=== PATIENT | female | born 1985 | race African-American/Black ===

== ENCOUNTER 2016-07-17 11:45 | Outpatient (CLI) | payer OTHER ==
[2016-07-17 13:11] LABS: #Eosinphils 0.2 thou/uL (0.0-0.7); #Lymphocytes 1.6 thou/uL (1.20-3.40); #Monocytes 0.8 thou/uL (0.11-0.59); #Neutrophils 5.1 thou/uL (1.40-6.50); %Basophils 0.5 % (0.0-1.0); %Eosinophils 2.9 % (0.0-10.0); %Monocytes 10.7 % (0.0-10.0); Hemoglobin 13.4 g/dL (12.0-16.0); Mean Corpuscular HGB CONC 32.4 g/dL (32.0-36.0); Mean Corpuscular Hemoglobin 33.4 pg (27.0-31.0); Mean Platelet Volume 7.5 fL (7.4-10.4); Platelet Count 195 thou/uL (130-400); RBC Distribution Width 12.3 % (11.5-14.5); Red Blood Cell (RBC) Count 4.01 mill/uL (4.20-5.40); White Blood Cell (WBC) Count 7.8 thou/uL (4.8-10.8)
== END 2016-07-17 11:46 | disposition home or self-care (01) ==
LOC: HPCALD 11:45
PROVIDERS: ATTEND Physician Assistant
DX: Z87.59 Personal history of other complications of pregnancy, childbirth and the puerperium (principal)
CPT/HCPCS: 36415; 84702; 85025

== ENCOUNTER 2016-09-24 12:55 | Emergency (ER) | payer OTHER | END 2016-09-24 13:42 | disposition home or self-care (01) | LOC: BURERS 12:55 | DX: K04.7 Periapical abscess without sinus (principal); F32.9 Major depressive disorder, single episode, unspecified; F17.210 Nicotine dependence, cigarettes, uncomplicated | CPT/HCPCS: 99282 ==

== ENCOUNTER 2017-11-14 11:52 | Emergency (ER) | payer OTHER ==
--- NOTE | 2017-11-14 15:43 | RAD ---
RIGHT FOREARM TWO VIEWS: 11/14/17 No fracture or dislocation was seen. There is no joint effusion at the elbow. There is a line through the posterior part of the olecranon near where it contacts the posterior humerus. The appearance loo ks more like old trauma than new. Additionally, in the absence of a large joint effusion, it is much more likely old as well. IMPRESSION: 1. No definite acute findings. 2. Probable old trauma to the elbow. 1. POS: HOME
--- NOTE | 2017-11-14 15:57 | RAD ---
LUMBAR SPINE THREE VIEWS: 11/14/17 No compression fractures were seen, however, there is a small avulsion from an anterior inferior corn er of L5. It is difficult to be certain if it is new or old, though it should probably be assumed to be acute until proven otherwise. There is some very slight disc space narrowing. The other lumbar sp ine were unremarkable. A very tiny edil of bone at the anterior inferior corner of L3 is rounded and is probably a remnant of an accessory ossification center. The SI joints appear normal. IMPRESSION: Small avulsion from the anterior inferior corner of the L5 vertebral body. Age indeterminate but if o ne were to do an MRI looking for edema, it could appropriately date the injury. Findings discussed with Dr. Newton at 1528 on 11/14/17. POS: HOME
== END 2017-11-14 15:50 | disposition home or self-care (01) ==
LOC: BURERS 11:52
DX: S31.000A Unspecified open wound of lower back and pelvis without penetration into retroperitoneum, initial encounter (principal); S50.11XA Contusion of right forearm, initial encounter; F32.9 Major depressive disorder, single episode, unspecified; F17.210 Nicotine dependence, cigarettes, uncomplicated; V86.59XA Driver of other special all-terrain or other off-road motor vehicle injured in nontraffic accident, initial encounter
CPT/HCPCS: 72100

== ENCOUNTER 2018-03-06 09:46 | Emergency (ER) | payer OTHER ==
[2018-03-06] MEDS ORDERED: AMOXicillin 250 MG CAP ONE (10:57)
== END 2018-03-06 11:18 | disposition home or self-care (01) ==
LOC: BURERS 09:46
DX: K03.81 Cracked tooth (principal); K02.9 Dental caries, unspecified; F17.210 Nicotine dependence, cigarettes, uncomplicated
CPT/HCPCS: 99282

== ENCOUNTER 2018-07-27 15:36 | Emergency (ER) | payer OTHER ==
[2018-07-27] MEDS ORDERED: AMOXicillin 250 MG CAP ONE (15:57)
== END 2018-07-27 15:57 | disposition home or self-care (01) ==
LOC: BURERS 15:36
DX: K02.9 Dental caries, unspecified (principal); F17.210 Nicotine dependence, cigarettes, uncomplicated

== ENCOUNTER 2018-12-28 13:18 | Emergency (ER) | payer OTHER | END 2018-12-28 13:43 | disposition home or self-care (01) | LOC: BURERS 13:18 | DX: K02.9 Dental caries, unspecified (principal); F17.210 Nicotine dependence, cigarettes, uncomplicated ==

== ENCOUNTER 2019-07-24 17:17 | Emergency (ER) | payer OTHER ==
[2019-07-24] MEDS ORDERED: AMOXicillin 250 MG CAP ONE (17:28)
[2019-07-24] MEDS ORDERED: Acetaminophen/Codeine 30-300mg Tablet ONE (17:29)
== END 2019-07-24 17:42 | disposition home or self-care (01) ==
LOC: BURERS 17:17
DX: K05.219 Aggressive periodontitis, localized, unspecified severity (principal); F17.210 Nicotine dependence, cigarettes, uncomplicated
CPT/HCPCS: 99282

== ENCOUNTER 2020-01-26 17:20 | Emergency (ER) | payer OTHER ==
[2020-01-26] MEDS ORDERED: HYDROcodone/Acetaminophen 10/325 mg Tablet ONE (17:36)
[2020-01-26] MEDS ORDERED: AMOXicillin 250 MG CAP ONE (17:36)
== END 2020-01-26 18:00 | disposition home or self-care (01) ==
LOC: BURERS 17:20
DX: K08.89 Other specified disorders of teeth and supporting structures (principal); F17.210 Nicotine dependence, cigarettes, uncomplicated
CPT/HCPCS: 99283

== ENCOUNTER 2020-12-07 08:32 | Emergency (ER) | payer OTHER ==
[2020-12-07] MEDS ORDERED: Ibuprofen 200 MG TAB ONE (08:47)
[2020-12-07] MEDS ORDERED: Penicillin V Potassium 250 MG TAB ONE (08:47)
== END 2020-12-07 09:02 | disposition home or self-care (01) ==
LOC: BURERS 08:32
DX: K04.7 Periapical abscess without sinus (principal); F17.210 Nicotine dependence, cigarettes, uncomplicated

== ENCOUNTER 2023-11-25 12:04 | Emergency (ER) | payer OTHER ==
[2023-11-25] MEDS ORDERED: Ibuprofen 200 MG TAB ONE (12:55)
== END 2023-11-25 13:00 | disposition home or self-care (01) ==
LOC: BURERS 12:04
DX: K04.7 Periapical abscess without sinus (principal); K02.9 Dental caries, unspecified; I10 Essential (primary) hypertension; F17.210 Nicotine dependence, cigarettes, uncomplicated
CPT/HCPCS: 99282